=== PATIENT | male | born 1955 | race Caucasian/White ===

== ENCOUNTER 2017-02-09 14:07 | Emergency (ER) | payer OTHER ==
[~2017-02-09] VITALS: Ht 182.9 cm; Wt 86.0 kg
[2017-02-09 14:56] VITALS: BP 112/84; PULSE 101; RESP 22; TEMP 98.1; O2SAT 89
[2017-02-09 15:07] VITALS: BP 112/84; PULSE 101; RESP 22; TEMP 98.1; O2SAT 92
[2017-02-09] MEDS ORDERED: SODIUM CHLORIDE 0.9% FLUSH 10 ML FLUSH IVF PRN (15:30)
--- NOTE | 2017-02-09 15:38 | PD ---
HPI Chief Complaint: Respiratory Symptoms Time Seen by Provider: 15:22 Travel History International Travel<30 days: No Contact w/Intl Traveler<30days: [place] Traveled to: [place] in August 2015 Traveled to known affect area: No History of Present Illness HPI 61-year-old male presents to the emergency department via EMS and from the [place] for evaluation of cough, shortness of breath. Patient states that he has had a cough and congestion for 3 weeks. However, he has not been able to rest due to the current pain. Today, he went to the [place] for evaluation was referred to the emergency department due to low oxygen saturation. The patient does report history of pneumonia was hospitalized before in the past. He states he has chest pain only with coughing. He does report history of anxiety, hypertension. The patient denies any fevers or chills. No abdominal pain. No nausea, vomiting, diarrhea. Patient received albuterol nebulizer and Solu- Medrol 125 mg IV prior to arrival. PFSH Past Medical History Hx Anticoagulant Therapy: No Blood Disorders: No Cancer: No Cardiovascular Problems: Yes (htn) Chemotherapy: No Diabetes: No Endocrine: No Genitourinary: No Immune Disorder: No Musculoskeletal: No Neurologic: No Psychiatric: No Respiratory: Yes Radiation Therapy: No ?: Past Surgical History AICD: No Joint Replacement: No Pacemaker: No Social History Alcohol Use: Yes Tobacco Use: Yes Substance Use: Yes (marijuana) Allergies-Medications (Allergen,Severity, Reaction): Coded Allergies: bee venom protein (honey bee) (Unverified Allergy, Mild, 02/09/17) Uncoded Allergies: POISON [place] (Allergy, Mild, 09/13/05) Reported Meds & Prescriptions Reported Meds & Active Scripts Active Active Prescriptions or Reported Medications Unobtainable Review of Systems Except as stated in HPI: all other systems reviewed are Neg Physical Exam Narrative GENERAL: Well-nourished, well-developed male patient, afebrile. SKIN: Focused skin assessment warm/dry. HEAD: Normocephalic. Atraumatic. EYES: No scleral icterus. No injection or drainage. NECK: Supple, trachea midline. No JVD or lymphadenopathy. CARDIOVASCULAR: Regular rate and rhythm without murmurs, gallops, or rubs. RESPIRATORY: Breath sounds equal bilaterally. No accessory muscle use. Patient has expiratory wheezes and scattered rhonchi on auscultation. GASTROINTESTINAL: Abdomen soft, non-tender, nondistended. MUSCULOSKELETAL: No cyanosis, or edema. BACK: Nontender without obvious deformity. No CVA tenderness. Data Data Last Documented VS Vital Signs Date Time Temp Pulse Resp B/P (MAP) Pulse Ox O2 Delivery O2 Flow Rate FiO2 02/09/17 18:00 106 18 127/70 (89) 92 Room Air 02/09/17 16:23 100 02/09/17 15:52 2.00 02/09/17 15:07 98.1 Orders Orders Electrocardiogram (02/09/17 15:30) Basic Metabolic Panel (Bmp) (02/09/17 15:30) Complete Blood Count With Diff (02/09/17 15:30) Chest, Single Ap (02/09/17 15:30) Ecg Monitoring (02/09/17 15:30) Iv Access Insert/Monitor (02/09/17 15:30) Oximetry (02/09/17 15:30) Oxygen Administration (02/09/17 15:30) Albuterol-Ipratropium Neb (Duoneb Neb) (02/09/17 15:30) Sodium Chloride 0.9% Flush (Ns Flush) (02/09/17 15:30) Blood Culture (02/09/17 15:30) Lactic Acid Sepsis Protocol (02/09/17 15:30) Creatine Kinase (Cpk) (02/09/17 15:30) Troponin I (02/09/17 15:30) Ct Pulmonary Angiogram (02/09/17 ) Iohexol 350 Inj (Omnipaque 350 Inj) (02/09/17 18:42) Labs Laboratory Tests Test 02/09/17 16:10 White Blood Count 11.1 TH/MM3 Red Blood Count 4.92 MIL/MM3 Hemoglobin 16.0 GM/DL Hematocrit 48.3 % Mean Corpuscular Volume 98.2 FL Mean Corpuscular Hemoglobin 32.4 PG Mean Corpuscular Hemoglobin Concent 33.0 % Red Cell Distribution Width 13.6 % Platelet Count 233 TH/MM3 Mean Platelet Volume 8.4 FL Neutrophils (%) (Auto) 85.0 % Lymphocytes (%) (Auto) 12.1 % Monocytes (%) (Auto) 2.3 % Eosinophils (%) (Auto) 0.2 % Basophils (%) (Auto) 0.4 % Neutrophils # (Auto) 9.5 TH/MM3 Lymphocytes # (Auto) 1.3 TH/MM3 Monocytes # (Auto) 0.3 TH/MM3 Eosinophils # (Auto) 0.0 TH/MM3 Basophils # (Auto) 0.0 TH/MM3 CBC Comment DIFF FINAL Differential Comment Blood Urea Nitrogen 9 MG/DL Creatinine 0.72 MG/DL Random Glucose 111 MG/DL Calcium Level 8.3 MG/DL Sodium Level 133 MEQ/L Potassium Level 3.9 MEQ/L Chloride Level 98 MEQ/L Carbon Dioxide Level 26.0 MEQ/L Anion Gap 9 MEQ/L Estimat Glomerular Filtration Rate 111 ML/MIN Lactic Acid Level 2.0 mmol/L Total Creatine Kinase 179 U/L Troponin I LESS THAN 0.02 NG/ML MDM Medical Decision Making Medical Screen Exam Complete: Yes Emergency Medical Condition: Yes Medical Record Reviewed: Yes Interpretation(s) Last Impressions Chest X-Ray 02/09/17 1530 Signed Impressions: Service Date/Time: Thursday, February 09, 2017 15:51 - CONCLUSION: No acute disease. José Siegel MD CT Angiography 02/09/17 0000 Signed Impressions: Service Date/Time: Thursday, February 09, 2017 18:17 - CONCLUSION: No pulmonary embolus or other acute abnormality. Coronary artery calcification noted. Mild emphysema. Billy Deleon MD Differential Diagnosis Pneumonia versus URI versus ACS versus influenza Narrative Course 61 on male presents to the emergency department for evaluation of cough, shortness of breath for 3 weeks. On arrival, pulse oximetry was 89%. Patient is on 2 L O2 nasal cannula and oxygen saturation is 92-94%. EKG, CBC, BMP, CK, troponin, lactic acid, blood cultures 2, chest x-ray are ordered and pending. Patient is given DuoNeb 2. EKG shows sinus tachycardia, heart rate 103, no acute ST changes. CBC shows slight leukocytosis of 11.1. BMP shows no acute abnormality. CK is 179. Troponin is less than 0.02. Lactic acid is 2.0. Chest x-ray shows no acute disease. CT pulmonary injury is ordered and shows no pulmonary embolus or other acute abnormality. Patient states he is feeling much better and would like to go home. Discussed the case attending physician, Dr. Wakefield, who agrees plan and disposition. Patient is given azithromycin 500 mg by mouth in the emergency department. He' ll be discharged with a prescription for prednisone, albuterol inhaler, azithromycin. He is encouraged to follow-up with primary care physician. He is return here for any acute worsening of symptoms. Patient verbalizes agreement and understanding. The patient was discharged in stable condition with instructions, including return instructions and follow up instructions. Diagnosis Primary Impression: COPD exacerbation Referrals: Primary Care Physician call for appointment Patient Instructions: COPD (Chronic Obstructive Pulmonary Disease) (ED), General Instructions Additional Instructions: Take antibiotic as directed until gone. Start this tomorrow as I gave you dose here. Take prednisone as directed until gone. Start this tomorrow as you received a dose here. Use albuterol inhaler as instructed as needed for shortness of breath/wheezing. Follow-up with your primary care physician. Return to the emergency department for any acute worsening of symptoms. Med/Other Pt SpecificInfo: Prescription(s) given Scripts Albuterol 18 GM Inh (Ventolin Hfa 18 GM Inh) 90 Mcg/Act Aer 1 PUFF INH Q4H Y for SHORTNESS OF BREATH, #1 INHALER 0 Refills Prov: Zoraida Salas 02/09/17 Prednisone (Prednisone) 20 Mg Tab 40 MG PO DAILY, #5 TAB 0 Refills Prov: Zoraida Salas 02/09/17 Azithromycin (Zithromax Z-Irving) 250 Mg Dspk 250 MG PO DIRECTED for Infection, #1 DSPK 0 Refills 500 MG (2 tabs) day 1, then 1 tab days 2-5. Prov: Zoraida Salas 02/09/17 Disposition: 01 DISCHARGE HOME Condition: Stable Zoraida Salas Feb 09, 2017 15:38
[2017-02-09 15:52] VITALS: O2SAT 94
[2017-02-09] MEDS: RESP: ALBUTEROL 2.5 MG/IPRATROPIUM 0.5 MG NEB (SCH) INH ×2 (15:52→15:56)
--- NOTE | 2017-02-09 15:55 | RADRPT ---
EXAM DATE/TIME: 02/09/2017 15:51 [facility] COMPARISON: No previous studies available for comparison. INDICATIONS : Wheezing. MEDICAL HISTORY : None. SURGICAL HISTORY : None. ENCOUNTER: Initial ACUITY: 1 day PAIN SCORE: 0/10 LOCATION: Left chest FINDINGS: A single view of the chest demonstrates the lungs to be symmetrically aerated without evidence of mas s, infiltrate or effusion. The cardiomediastinal contours are unremarkable. Osseous structures are intact. There are multiple overlying electrocardiogram leads. CONCLUSION: No acute disease. José Siegel MD on February 09, 2017 at 15:54 Board Certified Radiologist. This report was verified electronically.
[2017-02-09 16:23] VITALS: BP 130/83; PULSE 104; RESP 27; O2SAT 94
[2017-02-09 17:05] LABS: AUTOMATED NEUTROPHIL # 9.5 TH/MM3 (1.8-7.7); BASOPHIL % 0.4 % (0.0-2.0); EOSINOPHIL % 0.2 % (0.0-4.0); HEMATOCRIT 48.3 % (39.0-51.0); HEMO FLAGS DIFF FINAL; LYMPH % 12.1 % (9.0-44.0); LYMPHOCYTE # 1.3 TH/MM3 (1.0-4.8); MEAN CELL VOLUME 98.2 FL (80.0-100.0); MEAN CORPUSCULAR HEMOGLOBIN 32.4 PG (27.0-34.0); MONO % 2.3 % (0.0-8.0); PLATELET COUNT 233 TH/MM3 (150-450); RED BLOOD COUNT 4.92 MIL/MM3 (4.50-5.90); RED CELL DISTRIBUTION WIDTH 13.6 % (11.6-17.2); WHITE BLOOD COUNT 11.1 TH/MM3 (4.0-11.0)
[2017-02-09 17:20] LABS: ANION GAP 9 MEQ/L (5-15); BLOOD UREA NITROGEN 9 MG/DL (7-18); CHLORIDE 98 MEQ/L (98-107); GLOMERULAR FILTRATION RATE 111 ML/MIN (>89); POTASSIUM 3.9 MEQ/L (3.5-5.1); SODIUM (NA) 133 MEQ/L (136-145)
[2017-02-09 17:24] LABS: CREATINE KINASE 179 U/L (39-308)
[2017-02-09 18:00] VITALS: BP 127/70; PULSE 106; RESP 18; O2SAT 92
[2017-02-09] MEDS ORDERED: IOHEXOL 350 MG/ML 10 ML VIAL (for RAD DIAG) IVCONTRAST ONE (18:42)
--- NOTE | 2017-02-09 18:54 | RADRPT ---
EXAM DATE/TIME: 02/09/2017 18:17 [facility] COMPARISON: No previous studies available for comparison. INDICATIONS : Shortness of breath and congestion x2 weeks. IV CONTRAST: 100 cc Omnipaque 350 (iohexol) IV RADIATION DOSE: 23.50 CTDIvol (mGy) MEDICAL HISTORY : Hypertension. SURGICAL HISTORY : None. ENCOUNTER: Initial ACUITY: 2 weeks PAIN SCALE: 0/10 LOCATION: chest TECHNIQUE: Volumetric scanning of the chest was performed using a pulmonary embolism protocol MIP images were re constructed. Using automated exposure control and adjustment of the mA and/or kV according to patien t size, radiation dose was kept as low as reasonably achievable to obtain optimal diagnostic quality images. DICOM format image data is available electronically for review and comparison. Follow-up recommendations for detected pulmonary nodules are based at a minimum on nodule size and pa tient risk factors according to Fleischner Society Guidelines. FINDINGS: PULMONARY ARTERIES: No filling defects are seen in the pulmonary arteries through the segmental level. LUNGS: There is no consolidation or pneumothorax . No concerning pulmonary nodule is visualized. There is m ild emphysema. Trace scarring seen at the bases. PLEURAE: There is no pleural thickening or pleural effusion. MEDIASTINUM: There is good visualization of the great vessels of the middle mediastinum. No evidence of mediastin al or hilar adenopathy/mass. Heart size normal. There is right and left side coronary artery calcific ation. MUSCULOSKELETAL: Within normal limits for patient age. MISCELLANEOUS: The visualized upper abdominal organs demonstrate no acute abnormality. CONCLUSION: No pulmonary embolus or other acute abnormality. Coronary artery calcification noted. Mild emphysema. Billy Deleon MD on February 09, 2017 at 18:52 Board Certified Radiologist. This report was verified electronically.
[2017-02-09] MEDS ORDERED: AZITHROMYCIN 250 MG TAB PO ONE (19:15)
[2017-02-09] MEDS ORDERED: PRED20 PO (19:19)
[2017-02-09] MEDS ORDERED: VENTAER INH (19:19)
[2017-02-09] MEDS ORDERED: ZITHTAB PO (19:19)
[2017-02-09] MEDS ORDERED: HYDR-755 PO (19:29)
[2017-02-09] MEDS ORDERED: PRAV80TA2 PO (19:29)
[2017-02-09] MEDS ORDERED: LISI-515 PO (19:29)
[2017-02-09] MEDS ORDERED: PSYLLIUM PO (19:29)
--- NOTE | 2017-02-10 21:38 | EKG ---
Date Performed: 02/09/2017 Time Performed: 18:09:48 PTAGE: 61 years EKG: SINUS TACHYCARDIA BORDERLINE LEFT AXIS DEVIATION ABNORMAL RHYTHM ECG PREVIOUS TRACING : 09/12/2005 21.51 Compared to the previous tracing left axis present DOCTOR: Marquis Resendiz Interpretating Date/Time 02/10/2017 21:38:24
== END 2017-02-09 20:19 | disposition home or self-care (01) ==
LOC: NEPE 14:07
DX: J44.1 Chronic obstructive pulmonary disease with (acute) exacerbation (principal); I10 Essential (primary) hypertension; R94.31 Abnormal electrocardiogram [ECG] [EKG]
CPT/HCPCS: 71010; 71275; 80048; 82550; 83605; 84484; 85025; 87040; 93005; 94640; 94664; 99285; Q9967